=== PATIENT | female | born 1955 | race Caucasian/White ===

== ENCOUNTER → 2019-10-29 14:22 | Outpatient (BNVA) | payer BC, SELFPAY | PROVIDERS: Referring Provider Neurological Surgery; Visit Provider Specialist | DX: G61.81 Chronic inflammatory demyelinating polyneuritis (principal) | CPT/HCPCS: 99205 ==

== ENCOUNTER 2019-10-29 16:53 | Outpatient (CLI) | payer BC, SELFPAY ==
[2019-10-29 17:53] LABS: C Reactive Protein 5.4 mg/L (0.0-4.9)
[2019-10-29 18:09] LABS: Vitamin B12 763 pg/mL (232-1245)
[2019-10-29 18:35] LABS: Erythrocyte Sedimentation Rate 13 mm/hr (0-15)
[2019-10-29 19:10] LABS: Folate Level > 20.0 ng/mL (4.8-37.3)
[2019-10-31 08:32] LABS: PROTEIN, TOTAL 7.1 g/dL (6.1-8.1)
[2019-10-31 11:53] LABS: ALBUMIN 4.2 g/dL (3.8-4.8); ALPHA 1 GLOBULIN 0.4 g/dL (0.2-0.3); ALPHA 2 GLOBULIN 0.9 g/dL (0.5-0.9); BETA 1 GLOBULIN 0.5 g/dL (0.4-0.6); BETA 2 GLOBULIN 0.3 g/dL (0.2-0.5); COMPLEMENT COMPONENT C3C 152 mg/dL (83-193); COMPLEMENT COMPONENT C4C 26 mg/dL (15-57); GAMMA GLOBULIN 0.9 g/dL (0.8-1.7)
[2019-10-31 12:52] LABS: COMPLEMENT, TOTAL (CH50) >60 U/mL (31-60)
[2019-11-01 10:27] LABS: CENTROMERE B ANTIBODY <1.0 NEG AI (<1.0 NEG); JO-1 ANTIBODY <1.0 NEG AI (<1.0 NEG); RNP ANTIBODY <1.0 NEG AI (<1.0 NEG); SCL-70 ANTIBODY 2.2 POS AI (<1.0 NEG); SJOGREN'S ANTIBODY (SS-A) <1.0 NEG AI (<1.0 NEG); SM ANTIBODY <1.0 NEG AI (<1.0 NEG)
[2019-11-01 14:17] LABS: ANA SCREEN, IFA NEGATIVE (NEGATIVE)
[2019-11-01 17:07] LABS: THYROID PEROXIDASE ANTIBODIES <1 IU/mL (<9)
[2019-11-03 17:32] LABS: Methylmalonic Acid 241 nmol/L (87-318)
[2019-11-04 00:17] LABS: DNA AB (DS) CRITHIDIA,IFA NEGATIVE (NEGATIVE)
== END 2019-10-29 16:54 | disposition home or self-care (01) ==
LOC: LAB 16:58
PROVIDERS: Visit Provider Specialist
DX: R20.0 Anesthesia of skin (principal); R20.2 Paresthesia of skin
CPT/HCPCS: 36415; 82607; 82746; 83520; 83921; 84155; 84165; 85651; 86140

== ENCOUNTER → 2019-11-14 13:15 | Outpatient (BNVA) | payer BC, SELFPAY | PROVIDERS: Visit Provider Specialist | DX: G61.81 Chronic inflammatory demyelinating polyneuritis (principal); G62.9 Polyneuropathy, unspecified; R20.0 Anesthesia of skin; R20.2 Paresthesia of skin | CPT/HCPCS: 62270; 80500; 82945; 84157; 87070; 87075; 87205; 89050; 95913; 99205 ==

== ENCOUNTER → 2019-12-12 15:00 | Outpatient (BNVA) | payer BC, SELFPAY | PROVIDERS: PCP Internal Medicine; Visit Provider Specialist | DX: G61.81 Chronic inflammatory demyelinating polyneuritis (principal) | CPT/HCPCS: 99214 ==

== ENCOUNTER → 2020-02-06 13:05 | Outpatient (BNVA) | payer BC, SELFPAY | PROVIDERS: PCP Internal Medicine; Visit Provider Internal Medicine Rheumatology | DX: G61.81 Chronic inflammatory demyelinating polyneuritis (principal); M19.90 Unspecified osteoarthritis, unspecified site; Z79.899 Other long term (current) drug therapy; Z11.59 Encounter for screening for other viral diseases; Z11.1 Encounter for screening for respiratory tuberculosis; R76.8 Other specified abnormal immunological findings in serum; I25.10 Atherosclerotic heart disease of native coronary artery without angina pectoris; F17.210 Nicotine dependence, cigarettes, uncomplicated | CPT/HCPCS: 99204 ==

== ENCOUNTER 2020-02-13 12:11 | Outpatient (CLI) | payer BC, SELFPAY ==
--- NOTE | 2020-02-13 12:17 | XR_ITS ---
WS: [id number] XR hand RT min 3V* [id number] REASON FOR EXAM: M19.90 - Unspecified osteoarthritis, unspecified site FINDINGS: Minimal narrowing of the joint spaces with mild subchondral sclerosis in the DIP and MIP joints of th e fingers and thumb of the right hand. Most prominent in the DIP of the thumb, DIP joint index finger , the MIP and the IP of the little finger. Similar findings are seen in the carpal metacarpal joint o f the right thumb. The remainder of the joint spaces of the hand are intact. No fracture or other focal bony abnormality. Mild narrowing of the radiocarpal joint with mild subchondral sclerosis in the radius. XR/XR hand RT min 3V* [id number] IMPRESSION: Minimal change of osteoarthropathy as above.
--- NOTE | 2020-02-13 12:17 | XR_ITS ---
WS: [id number] LEFT FOOT: 3 VIEW(S) TECHNIQUE: AP, oblique and lateral. HISTORY: M19.90 - Unspecified osteoarthritis, unspecified site COMPARISON: None available. No acute fracture or dislocation. Normal tarsal/metatarsal alignment. No soft tissue abnormality or bone destruction. Mild osteopenia and mild interphalangeal joint space narrowing. No soft tissue edema. No erosions. XR/XR foot LT min 3V* [id number] IMPRESSION: Mild osteoarthritis. No erosions.
--- NOTE | 2020-02-13 12:17 | XR_ITS ---
WS: [id number] XR hand LT min 3V* [id number] REASON FOR EXAM: M19.90 - Unspecified osteoarthritis, unspecified site FINDINGS: Minimal narrowing of the joint space and mild subchondral sclerosis in the MIP and DIP joints of the left hand and thumb. Findings are most prominent in the DIP of the thumb, DIP of index finger, MIP of the fourth finger, MIP and DIP of the fifth finger. Similar findings are seen in the carpal metacarpal joint of the thumb. No fracture or other focal bony abnormality. Mild narrowing of the radiocarpal joint with mild subchondral sclerosis of the radius. XR/XR hand LT min 3V* [id number] IMPRESSION: Minimal changes of osteoarthritis as above.
--- NOTE | 2020-02-13 12:17 | XR_ITS ---
WS: [id number] XR foot RT min 3V* [id number] REASON FOR EXAM: M19.90 - Unspecified osteoarthritis, unspecified site FINDINGS: Mild narrowing with mild subchondral sclerosis and MIP and DIP joints of the toes. This is most notab le in the DIP joint of the great toe. Similar arthropathic changes seen in the metatarsophalangeal theresa int of the great toe. No fracture or other focal bone lesion is seen in the forefoot. In the midfoot and hindfoot there is minimal narrowing of the joint spaces with minimal subchondral s clerosis. This is most evident in the talonavicular joint. No fracture or focal bone abnormality note d in the mid foot. In the hindfoot joint spaces are relatively well preserved. No fracture or focal bone lesion. Small e nthesophytes at the insertions of the Achilles tendon and the plantar fascia on the calcaneus. XR/XR foot RT min 3V* [id number] IMPRESSION: Mild changes of osteoarthritis as above. Small enthesophytes of the calcaneus a s above.
--- NOTE | 2020-02-13 12:17 | XR_ITS ---
WS: [id number] CHEST 2 VIEWS HISTORY: M19.90 - Unspecified osteoarthritis, unspecified site COMPARISON: None available. Lungs: Well aerated lungs. Mild flattening of the diaphragms. No pneumonia or pulmonary nodule. No pl eural effusion. Cardiac size: Normal. Mediastinum/Aorta: Normal mediastinum. Bones: Normal. XR/XR chest 2V* [id number] IMPRESSION: No acute cardiopulmonary disease.
[2020-02-13 13:22] LABS: Basophils # 0.1 10^3/uL (0.0-0.1); Basophils % 0.6 %; Eosinophils % 0.2 %; Hemoglobin 15.1 g/dL (11.5-15.3); Lymphocytes # 2.3 10^3/uL (0.8-4.8); Mean Corpuscular HGB Conc 34.3 g/dL (30.0-36.0); Mean Corpuscular Hemoglobin 30.4 pg (28.0-34.0); Mean Corpuscular Volume 88.7 fL (81-99); Mean Platelet Volume 9.8 fL (7.4-10.4); Monocytes # 0.5 10^3/uL (0.2-0.9); Monocytes % 5.2 %; Neutrophils # 5.77 10^3/uL (1.8-7.7); Neutrophils % 66.7 %; Nucleated Red Blood Cells % 0 %; Platelet Count 214 10^3/cmm (130-400); Red Blood Count 4.96 10^6/uL (4.1-5.3); Red Cell Distribution Width 12.8 % (12.1-15.1); White Blood Count 8.7 10^3/uL (4.0-10.0)
[2020-02-13 14:03] LABS: 25 Hydroxy Vitamin D 46 ng/mL (30-100); Alanine Aminotransferase < 5 U/L (0-33); Albumin Level 4.7 g/dL (3.5-5.2); Alkaline Phosphatase 111 IU/L (35-105); Aspartate Amino Transferase 11 U/L (0-32); C Reactive Protein 4.5 mg/L (0.0-4.9); Globulin 2.2 g/dL (1.3-4.6); Glomerular Filtration Rate 101.3 mL/min (90-130); Total Bilirubin 0.2 mg/dL (0.15-1.2); Total Protein 6.9 g/dL (6.6-8.7)
[2020-02-13 14:05] LABS: Hepatitis B Core AB, Total Non-Reactive (Nonreactive); Hepatitis B Surface Antigen Non-Reactive (Nonreactive); Hepatitis C Virus Antibody Non-Reactive (Nonreactive)
[2020-02-13 14:27] LABS: Erythrocyte Sedimentation Rate 14 mm/hr (0-15)
[2020-02-14 13:58] LABS: Cyclic Citrullinated Peptide <16 UNITS
[2020-02-14 16:28] LABS: SCL 70 1.7 POS AI (<1.0 NEG)
[2020-02-15 12:38] LABS: Quantiferon Mitogen 8.33 IU/mL; Quantiferon Nil 0.05 IU/mL; Quantiferon Plus TB1 0.01 IU/mL; Quantiferon Plus TB2 0.01 IU/mL; Quantiferon TB Gold NEGATIVE (NEGATIVE)
== END 2020-02-13 12:12 | disposition home or self-care (01) ==
PROVIDERS: PCP Internal Medicine; Visit Provider Internal Medicine Rheumatology
DX: M19.90 Unspecified osteoarthritis, unspecified site (principal); Z79.899 Other long term (current) drug therapy
CPT/HCPCS: 36415; 71046; 73130; 73630; 80076; 82306; 82565; 85025; 85651; 86140; 86235; 86431; 86480; 86704; 86803; 87340

== ENCOUNTER → 2020-03-19 12:38 | Outpatient (BNVA) | payer BC, SELFPAY | PROVIDERS: PCP Internal Medicine; Visit Provider Specialist | DX: G61.81 Chronic inflammatory demyelinating polyneuritis (principal); F17.210 Nicotine dependence, cigarettes, uncomplicated | CPT/HCPCS: 99215 ==

== ENCOUNTER 2020-04-10 10:43 | Day surgery (SDC) | payer BC, SELFPAY ==
[2020-04-09 10:52] VITALS: BMI 23.8
[2020-04-10 10:59] VITALS: BP 167/112; PULSE 88; RESP 18; TEMP 36.1; O2SAT 98
[2020-04-10] MEDS: sodium chloride 0.9% 1,000 ML 30 ML IV (11:18)
--- NOTE | 2020-04-10 11:43 | ANES.PREANE2 ---
Pre-Anesthetic Assessment Pre-Anesthetic Assessment: Height/Weight: Height 1.57 m Weight 58.967 kg Temp Pulse Resp BP Pulse Ox 97 F L 88 18 167/112 98 04/10/20 10:59 04/10/20 10:59 04/10/20 10:59 04/10/20 10:59 04/10/20 10:59 Preop Diagnosis: CDIP Proposed Procedure: Operation Date: 04/10/20 12:00 Proposed Procedures p SURAL NERVE BIOPSY g62.9(Not Applicable) - Socrates Campos MD Familial anesthetic complications: None Was Beta Ramez taken within 24 hours: N/A Last intake: Intake Last Liquid Date 04/09/20 Last Liquid Time 21:00 Last Solid Date 04/09/20 Last Solid Time 21:00 Social: Social History: Tobacco and No alcohol Exam: Pre-Anes Outpt Exam: alert, oriented x 3, clear to auscultation bilaterally and regular rate & rhythm Airway: Cervical ROM: WNL MP: 2 Dentition: Partials CV/HEM: CV/HEM: CAD (4 stents (> 1 year ago)) and HTN Neuropsych: Comments: chronic demyelinating polyneuropathy Anesthetic Plan: ASA status: 2 Anesthesia: MAC Risk of > 500 ml blood loss (7ml/kg in children): No Meds/Allergies Current Medications: Current Medications Generic Name Dose Route Start Last Admin Trade Name Freq PRN Reason Stop Dose Admin Sodium Chloride 1,000 mls @ 30 ml s/hr 04/10/20 11:00 04/10/20 11:18 Sodium Chloride 0.9% IV 04/11/20 10:59 30 mls/hr .Q24H ALYCIA Administration PFSH Anesthesia PFSH: Medical History (Updated 03/31/20 @ 11:44 by Socrates Campos MD) Dyslipidemia HTN (hypertension), benign Inflammatory arthritis Surgical History (Updated 03/31/20 @ 11:42 by Socrates Campos MD) H/O: hysterectomy History of heart artery stent 4 stents Status post colonoscopy Family History Other Cancer Diabetes Family history of premature coronary artery disease Hyperlipidemia Hypertension Rheumatoid arthritis Denies family history of Lupus CAD (coronary artery disease) Chronic kidney disease (CKD) Lung disease Stroke Social History Smoking and tobacco status: current every day smoker Alcohol intake: never History of recent travel: No Data Anesthesia Cardiac Studies: No Data to Display
--- NOTE | 2020-04-10 11:46 | W.PM.OPSUD ---
Surgery/Procedure H&P Update DATE OF PROCEDURE: April 10, 2020 DATE H&P PERFORMED: 03/31/20 H&P UPDATE INFORMATION: I have reviewed H&P completed within last 30 days, I have examined patient prior to procedure and No changes to prior documentation PREOP DIAGNOSIS: CDIP PLANNED PROCEDURE: Operation Date: 04/10/20 12:00 Proposed Procedures p SURAL NERVE BIOPSY g62.9(Not Applicable) - Socrates Campos MD
[2020-04-10 14:03] VITALS: BP 126/79; PULSE 83; RESP 18; TEMP 36.1; O2SAT 96
--- NOTE | 2020-04-10 14:10 | ANE.PACU2 ---
Inpatient post-anesthesia follow up: Airway intact: Yes Vital signs: Temperature 97 F Pulse Rate 83 Respiratory Rate 18 Blood Pressure 126/79 Pulse Oximetry 96 Oxygen Delivery Me thod Room Air Oxygen Flow Rate Fraction of Inspir ed Oxygen Hydration adequate: Yes Nausea and vomiting: No Pain level: 2 Mental status: Baseline
[2020-04-10 14:22] VITALS: BP 126/79; PULSE 76; RESP 18; TEMP 36.1; O2SAT 97
--- NOTE | 2020-04-10 15:54 | P.OP_ITS ---
Operative Report Date of procedure: April 10, 2020 Pre-op Diagnosis: CDIP Post-op diagnosis: same Procedure Done: Right sural nerve biopsy Specimens removed/disposition: Right sural nerve Surgeon: Socrates Campos Anesthesia: MAC Condition: stable Disposition: same day Procedure: The patient was taken to the operating room and placed in the left lateral position under MAC. 0.5% Marcaine was infiltrated midway between the posterior border of the lateral malleolus and Achilles tendon. Using 15 blade a 4 cm longitudinal incision was made, subcutaneous tissue was divided using electrocautery and the right sural nerve was identified and divided and the segment was excised using Metzenbaum scissors and sent to pathology in saline soaked Telfa. There was some bleeding from the adjacent vein which was controlled with medium clips. The wound was irrigated with saline, hemostasis ensured and subcutaneous tissue was approximated using running 3-0 Vicryl suture and skin was closed with running subcuticular 4-0 Monocryl suture and surgical g lue. The patient was transferred to recovery room in stable condition.
== END 2020-04-10 14:35 | disposition home or self-care (01) ==
PROVIDERS: PCP Internal Medicine; Visit Provider Surgery
PROC: (CPT 64795; principal; 2020-04-10 12:00)
DX: G61.81 Chronic inflammatory demyelinating polyneuritis (principal); I25.10 Atherosclerotic heart disease of native coronary artery without angina pectoris; Z95.5 Presence of coronary angioplasty implant and graft; I10 Essential (primary) hypertension; E78.5 Hyperlipidemia, unspecified; M19.90 Unspecified osteoarthritis, unspecified site; F17.210 Nicotine dependence, cigarettes, uncomplicated
CPT/HCPCS: 64795; 12345; 88300; 88305; 88314; 88319; 88341; 88342; J2250; J2405; J2704; J3010; J3490; J7030

== ENCOUNTER → 2020-06-23 13:44 | Outpatient (BNVA) | payer BC, SELFPAY | PROVIDERS: PCP Internal Medicine; Visit Provider Specialist | DX: G61.81 Chronic inflammatory demyelinating polyneuritis (principal); F17.210 Nicotine dependence, cigarettes, uncomplicated | CPT/HCPCS: 99214 ==

== ENCOUNTER → 2020-09-01 13:48 | Outpatient (BNVA) | payer BC, SELFPAY | PROVIDERS: PCP Internal Medicine; Visit Provider Specialist | DX: G61.81 Chronic inflammatory demyelinating polyneuritis (principal); R20.0 Anesthesia of skin; R20.2 Paresthesia of skin; F17.210 Nicotine dependence, cigarettes, uncomplicated | CPT/HCPCS: 95909; 95910 ==

== ENCOUNTER → 2020-10-27 13:37 | Outpatient (BNVA) | payer BC, SELFPAY | PROVIDERS: PCP Internal Medicine; Visit Provider Specialist | DX: G61.81 Chronic inflammatory demyelinating polyneuritis (principal); F17.210 Nicotine dependence, cigarettes, uncomplicated | CPT/HCPCS: 99214; 99215 ==

== ENCOUNTER → 2021-01-12 14:13 | Outpatient (BNVA) | payer BC, SELFPAY | PROVIDERS: PCP Internal Medicine; Visit Provider Specialist | DX: G61.81 Chronic inflammatory demyelinating polyneuritis (principal); Z79.899 Other long term (current) drug therapy | CPT/HCPCS: 99214; 99215 ==